=== PATIENT | female | born 1940 | race Two or more races ===

== ENCOUNTER 2024-03-19 19:57 | Inpatient (IN) | payer OTHER ==
[2024-03-19 23:00] VITALS: BP 129/57; PULSE 64; RESP 20; TEMP 97.8; O2SAT 93
[2024-03-19 23:29] VITALS: PULSE 66; RESP 16; O2SAT 93
[2024-03-20] VITALS (9 sets, daily range): BP systolic 110–148; BP diastolic 44–90; PULSE 56–91; RESP 16–19; TEMP 97.8–98.5; O2SAT 93–99
[2024-03-20] MEDS ORDERED: MORPHINE SULFATE INJ 2 MG/ml SYRG IV PRN (04:45)
[2024-03-20] MEDS ORDERED: ACETAMINOPHEN 325 MG TAB PO PRN (04:45)
[2024-03-20] MEDS ORDERED: ONDANSETRON HCL 4 MG/2 ML VIAL IV PRN (04:45)
[2024-03-20] MEDS ORDERED: MECL1TAB42 PO (08:41)
[2024-03-20 09:42] LABS: Basophils # (auto) 0.1 10 ^3/uL (0-0.2); Eosinophils # (auto) 0.1 10 ^3/uL (0-0.8); Eosinophils % (auto) 2.4 % (0.0-7.0); Hematocrit 39.5 % (36.0-46.0); Hemoglobin 13.7 g/dL (12.2-16.2); Lymphocytes # (auto) 0.8 10 ^3/uL (0.4-5.4); Lymphocytes % (auto) 13.8 % (10.0-50.0); Mean Corpuscular Hemoglobin 32.9 pg (28.0-32.0); Mean Corpuscular Hgb Conc. 34.7 g/dL (32.0-36.0); Mean Corpuscular Volume 94.9 fL (80.0-100.0); Monocytes # (auto) 0.4 10 ^3/uL (0-1.3); Neutrophils # (auto) 4.6 10 ^3/uL (1.6-8.6); Neutrophils % (auto) 76.8 % (37.0-80.0); Nucleated Red Blood Cells % 0.1 %; Platelet Count (auto) 260 10^3/uL (140-450); Red Blood Cells 4.16 10^6/uL (4.0-5.20); Red Cell Distribution Width 15.7 % (11.8-14.3)
[2024-03-20 09:56] LABS: Alanine Aminotransferase 18 U/L (7-40); Alkaline Phosphatase 63 U/L (46-116); Anion Gap 5 (5-15); Aspartate Aminotransferase 23 U/L (13-40); BUN/Creatinine Ratio 13.5 (10.0-20.0); Blood Urea Nitrogen 10 mg/dL (9-23); Calcium 9.6 mg/dL (8.7-10.4); Carbon Dioxide 28 mmol/L (20-30); Chloride 106 mmol/L (98-107); Glucose 95 mg/dL (74-106); Potassium 3.9 mmol/L (3.5-5.1); Sodium 139 mmol/L (136-145)
[2024-03-20 09:57] LABS: Total Protein 7.1 g/dL (5.7-8.2)
[2024-03-20] MEDS ORDERED: NICOTINE 7MG/24HR TOPICAL PATCH TD ONE (14:15)
[2024-03-20] MEDS: NICOTINE 14 MG/24HR TOPICAL PATCH TD ONE (16:16)
[2024-03-20] MEDS: HYDROcodone-ACET 5/325MG TAB PO PRN (16:16)
[2024-03-21] VITALS: BP 130/46; PULSE 60; RESP 17; TEMP 97.4; O2SAT 97
[2024-03-21 00:07] LABS: Urine Bacteria None Seen /hpf (None Seen)
[2024-03-21 00:19] LABS: Urine Blood 3+ /uL (Negative); Urine Clarity Clear (Clear); Urine Color Light-Yellow (Yellow); Urine Protein, UAD Negative (Negative); Urine Specific Gravity 1.007 (1.001-1.035); Urine Urobilinogen Normal (Negative); Urine WBC 3 /hpf (0 - 5); Urine pH 6.5 (5.0-9.0)
[2024-03-21 05:56] VITALS: BP 137/64; PULSE 61; RESP 16; TEMP 98; O2SAT 93
[2024-03-21 09:00] VITALS: BP 126/58; PULSE 66; RESP 18; TEMP 97.9; O2SAT 94
[2024-03-21] MEDS ORDERED: NICOTINE 7MG/24HR TOPICAL PATCH TD SCH (10:00)
[2024-03-21] MEDS: NICOTINE 14 MG/24HR TOPICAL PATCH TD SCH (10:00)
[2024-03-21 13:00] VITALS: BP 122/61; PULSE 70; RESP 16; TEMP 97.8; O2SAT 95
[2024-03-21 13:53] VITALS: TEMP 36.6
[2024-03-22] MEDS ORDERED: NIC21P TOP (10:55)
== END 2024-03-21 17:20 | disposition home health service (06) | DRG 536 ==
LOC: CENTRAL 22:40
PROVIDERS: ADMIT Nurse Practitioner; ATTEND Internal Medicine Geriatric Medicine
DX: S32.302A Unspecified fracture of left ilium, initial encounter for closed fracture (principal); W18.39XA Other fall on same level, initial encounter; R26.89 Other abnormalities of gait and mobility; Z72.0 Tobacco use; Z87.310 Personal history of (healed) osteoporosis fracture; Z88.0 Allergy status to penicillin; Y93.89 Activity, other specified; Y92.89 Other specified places as the place of occurrence of the external cause; Y99.8 Other external cause status
CPT/HCPCS: 36415; 73502; 80053; 81001; 82306; 82607; 84484; 85025; 87081; 97110; 97116; 97163; 97530; G0378

== ENCOUNTER 2024-04-03 11:26 | Emergency (ER) | payer OTHER ==
[~2024-04-03] VITALS: Ht 170.2 cm; Wt 50.0 kg
[~2024-04-03 11:26] MED LIST: MECL1TAB42 PO; NIC21P TOP
[2024-04-03 12:14] LABS: Basophils # (auto) 0 10 ^3/uL (0-0.2); Basophils % (auto) 0.6 % (0.0-2.0); Eosinophils # (auto) 0.1 10 ^3/uL (0-0.8); Hematocrit 33.1 % (36.0-46.0); Hemoglobin 11.5 g/dL (12.2-16.2); Lymphocytes # (auto) 0.6 10 ^3/uL (0.4-5.4); Lymphocytes % (auto) 8.4 % (10.0-50.0); Mean Corpuscular Hemoglobin 33.2 pg (28.0-32.0); Mean Corpuscular Hgb Conc. 34.7 g/dL (32.0-36.0); Mean Corpuscular Volume 95.6 fL (80.0-100.0); Monocytes # (auto) 0.6 10 ^3/uL (0-1.3); Monocytes % (auto) 8.6 % (0.0-12.0); Neutrophils # (auto) 5.5 10 ^3/uL (1.6-8.6); Neutrophils % (auto) 81.4 % (37.0-80.0); Platelet Count (auto) 358 10^3/uL (140-450); Red Blood Cells 3.47 10^6/uL (4.0-5.20); Red Cell Distribution Width 14.8 % (11.8-14.3); White Blood Cell 6.8 10^3/uL (4.4-10.8)
[2024-04-03 12:30] LABS: Alanine Aminotransferase 15 U/L (7-40); Albumin 3.7 g/dL (3.2-4.8); Alkaline Phosphatase 134 U/L (46-116); Anion Gap 5 (5-15); Aspartate Aminotransferase 20 U/L (13-40); BUN/Creatinine Ratio 19.2 (10.0-20.0); Blood Urea Nitrogen 14 mg/dL (9-23); Calcium 9.1 mg/dL (8.7-10.4); Carbon Dioxide 26 mmol/L (20-30); Chloride 105 mmol/L (98-107); Glucose 94 mg/dL (74-106); Magnesium 2.3 mg/dL (1.6-2.6); Potassium 4.4 mmol/L (3.5-5.1); Sodium 136 mmol/L (136-145)
[2024-04-03 12:31] LABS: Bilirubin, Total 0.9 mg/dL (0.2-1.0); Total Protein 6.4 g/dL (5.7-8.2)
[2024-04-03 12:38] VITALS: PULSE 73; RESP 20; O2SAT 94
[2024-04-03] MEDS ORDERED: DexAMETHasone SOD PHOS 10MG/1ML VIAL INJ IM ONE (13:45)
[2024-04-03] MEDS: ONDANSETRON HCL 4 MG/2 ML VIAL IV ONE (14:45)
[2024-04-03] MEDS: DexAMETHasone SOD PHOS 10MG/1ML VIAL INJ IV ONE (16:15)
[2024-04-03 16:28] VITALS: BP 134/56; PULSE 79; RESP 18; TEMP 99; O2SAT 93
== END 2024-04-03 16:27 | disposition short-term general hospital (02) ==
LOC: EDBD 11:26 → ER 11:26
DX: G93.9 Disorder of brain, unspecified (principal); R29.6 Repeated falls; R26.81 Unsteadiness on feet; Z79.899 Other long term (current) drug therapy
CPT/HCPCS: 36415; 70450; 71045; 74176; 80053; 83605; 83735; 84484; 85025; 96374; 99285; J1100